=== PATIENT | male | born 1995 | race Caucasian/White ===

== ENCOUNTER 2018-09-27 17:08 | Inpatient (IN) ==
[2018-09-27] MEDS ORDERED: SODIUM CHLORIDE 0.9% 1,000 ML IV STA (18:41)
[2018-09-27] MEDS ORDERED: ONDANSETRON 4 MG/2 ML VIAL IV STA (18:41)
[2018-09-27 18:51] LABS: Basophils # 0.1 10*3/uL (0.0-0.2); Basophils % 0.5 % (0.0-0.8); Eosinophils % 0.2 % (0.00-10.9); Hematocrit 47.8 VOL% (42.0-52.0); Hemoglobin 16.2 GM/DL (14.0-18.0); Immature Granulocytes % 0.6 %; Immature Granulocytes Absolute 0.06 #; Lymphocytes # 1.5 10*3/uL (1.4-4.0); Lymphocytes % 15.6 % (21.2-54.2); Mean Corpuscular HGB Conc 33.9 GM/DL (32-36); Mean Corpuscular Hemoglobin 30 PG (27-34); Mean Corpuscular Volume 87.2 FL (87-102); Mean Platelet Volume 13.2 FL (9.6-12.0); Monocytes # 0.4 10*3/uL (0.11-0.8); Monocytes % 3.6 % (1.7-12.7); Neutrophils # 7.7 10*3/uL (1.4-7.4); Neutrophils % 79.5 % (38.7-73.9); Platelet Count 195 T/CUMM (130-400); Red Blood Count 5.48 MC/CUMM (3.8-5.5); Red Cell Distribution Width 11.9 % (9.3-17.3); White Blood Count 9.7 T/CUMM (4-12)
[2018-09-27 19:02] LABS: Albumin 4.3 G/DL (3.4-5.0); Bilirubin,Total 0.7 MG/DL (0.2-1.0); Calcium 9.3 MG/DL (8.5-10.1); Osmolality,Calculated 290.9 MOS/KG (273-304); Potassium 4.7 MMOL/L (3.5-5.1); Total Protein 7.9 G/DL (6.4-8.3)
[2018-09-27] MEDS ORDERED: INSULIN REGULAR 100 UNIT/ML IV STA ×2 (19:08→20:30)
[2018-09-27 19:41] LABS: Apearance,Urine CLEAR (Clear); Bilirubin,Urine Negative (Negative); Blood, Urine Negative (Negative); Glucose,Urine (UA) >=500 mg/dL (Negative); Ketones,Urine 20 mg/dL (Negative); Nitrite,Urine Negative (Negative); Protein,Urine Negative; Urine Color Straw (Yellow); Urine Urobilinogen < 2.0 EU/DL (0.2-1.0)
[2018-09-27 19:55] LABS: Barbiturates Screen,Urine Negative (Negative); Benzodiazepines Screen,Urine Negative (Negative); Cannabinoid Screen,Urine Negative (Negative); Opiate Screen,Urine Negative (Negative); Phencyclidine Screen,Urine Negative (Negative)
[2018-09-27] MEDS ORDERED: DEXTROSE 50% 25 GM/50 ML VIAL IV PRN (21:02)
[2018-09-27] MEDS ORDERED: GLUCAGON 1 MG VIAL IM PRN (21:02)
[2018-09-27] MEDS ORDERED: ACETAMINOPHEN 325 MG TABLET PO PRN (21:06)
[2018-09-27] MEDS ORDERED: LORazepam 2 MG/1 ML VIAL IV PRN (21:26)
[2018-09-27] MEDS: INSULIN REGULAR 100 UNIT/ML SUBCUT SCH (22:46)
[2018-09-27] MEDS: SODIUM CHLORIDE 0.9% 1,000 ML IV SCH (22:52)
[2018-09-28] MEDS: INSULIN REGULAR 100 UNIT/ML SUBCUT SCH ×7 (02:58→23:28)
[2018-09-28 04:36] LABS: Basophils # 0.1 10*3/uL (0.0-0.2); Basophils % 0.6 % (0.0-0.8); Eosinophils # 0.1 10*3/uL (0.0-0.87); Eosinophils % 0.8 % (0.00-10.9); Hematocrit 42.7 VOL% (42.0-52.0); Hemoglobin 14.3 GM/DL (14.0-18.0); Immature Granulocytes % 0.2 %; Immature Granulocytes Absolute 0.02 #; Lymphocytes # 2.3 10*3/uL (1.4-4.0); Lymphocytes % 24.5 % (21.2-54.2); Mean Corpuscular HGB Conc 33.5 GM/DL (32-36); Mean Corpuscular Hemoglobin 29 PG (27-34); Mean Platelet Volume 12.7 FL (9.6-12.0); Monocytes # 0.7 10*3/uL (0.11-0.8); Monocytes % 7.1 % (1.7-12.7); Neutrophils # 6.2 10*3/uL (1.4-7.4); Neutrophils % 66.8 % (38.7-73.9); Platelet Count 193 T/CUMM (130-400); Red Blood Count 4.91 MC/CUMM (3.8-5.5); White Blood Count 9.3 T/CUMM (4-12)
[2018-09-28 04:53] LABS: Calcium 8.7 MG/DL (8.5-10.1); Osmolality,Calculated 280.8 MOS/KG (273-304)
[2018-09-28] MEDS: SODIUM CHLORIDE 0.9% 1,000 ML IV SCH ×3 (06:36→21:57)
[2018-09-28] MEDS ORDERED: INSULIN ASPART SUBCUT SCH (07:30)
[2018-09-28] MEDS: INSULIN GLARGINE 100 UNIT/ML SUBCUT SCH (09:31)
[2018-09-28] MEDS: ONDANSETRON 4 MG/2 ML VIAL IV PRN (10:06)
[2018-09-29] MEDS: INSULIN REGULAR 100 UNIT/ML SUBCUT SCH ×6 (02:46→21:35)
[2018-09-29] MEDS: ONDANSETRON 4 MG/2 ML VIAL IV PRN ×2 (02:48→09:18)
[2018-09-29 06:01] LABS: Calcium 8.2 MG/DL (8.5-10.1); Osmolality,Calculated 285.1 MOS/KG (273-304); Potassium 3.5 MMOL/L (3.5-5.1)
[2018-09-29] MEDS: SODIUM CHLORIDE 0.9% 1,000 ML IV SCH ×2 (06:32→16:11)
[2018-09-29] MEDS: INSULIN GLARGINE 100 UNIT/ML SUBCUT SCH (09:14)
[2018-09-29] MEDS ORDERED: NICOTINE 21 MG/24 HR PATCH TRANSDERM PRN (11:13)
[2018-09-29] MEDS: PANTOPRAZOLE 40 MG TABLET PO SCH (12:23)
[2018-09-29 14:00] LABS: ABG Base Excess -5.2 MMOL/L (-2.5-2.5); ABG HCO3 20.1 MMOL/L (20-26); ABG PCO2 28.5 MM HG (35-48); ABG PH 7.406 (7.35-7.45); ABG PO2 75.6 MM HG (80-95); ABG TCO2 14.9 MMOL/L (23-27)
[2018-09-29] MEDS ORDERED: PHENYTOIN INJ 1,000 MG in SODIUM CHLORIDE 0.9% 100 ML IV ONE (14:00)
[2018-09-29 14:08] LABS: Basophils # 0.1 10*3/uL (0.0-0.2); Basophils % 0.2 % (0.0-0.8); Hematocrit 48.7 VOL% (42.0-52.0); Immature Granulocytes % 0.7 %; Immature Granulocytes Absolute 0.15 #; Lymphocytes # 4.2 10*3/uL (1.4-4.0); Lymphocytes % 19.3 % (21.2-54.2); Mean Corpuscular HGB Conc 34.3 GM/DL (32-36); Mean Corpuscular Hemoglobin 30 PG (27-34); Mean Corpuscular Volume 86.8 FL (87-102); Mean Platelet Volume 12.4 FL (9.6-12.0); Monocytes # 0.7 10*3/uL (0.11-0.8); Monocytes % 3.1 % (1.7-12.7); Neutrophils # 16.7 10*3/uL (1.4-7.4); Neutrophils % 76.7 % (38.7-73.9); Red Blood Count 5.61 MC/CUMM (3.8-5.5); Red Cell Distribution Width 12.2 % (9.3-17.3)
[2018-09-29 14:26] LABS: Alanine Aminotransferase 49 U/L (16-61); Albumin 3.9 G/DL (3.4-5.0); Alkaline Phosphatase 82 U/L (45-117); Aspartate Amino Transferase 56 U/L (0-37); Blood Urea Nitrogen 10 MG/DL (7-18); Calcium 8.6 MG/DL (8.5-10.1); Glucose 176 MG/DL (74-106); Osmolality,Calculated 281.4 MOS/KG (273-304); Potassium 2.9 MMOL/L (3.5-5.1); Sodium 140 MMOL/L (136-145); Total Protein 6.7 G/DL (6.4-8.3); Troponin I < 0.015 NG/ML (0.00-0.045)
[2018-09-29 14:29] LABS: Hemoglobin 16.7 GM/DL (14.0-18.0); White Blood Count 21.8 T/CUMM (4-12)
[2018-09-29 14:30] LABS: Platelet Count 255 T/CUMM (130-400)
[2018-09-29 14:57] LABS: Lymphocytes 18 % (20-55); Segmented Neutrophils 78 % (50-85); Total Cells Counted 100
[2018-09-29 14:59] LABS: Platelet Estimate Normal
[2018-09-30 04:32] LABS: Calcium 8.5 MG/DL (8.5-10.1); Osmolality,Calculated 284.7 MOS/KG (273-304)
[2018-09-30 05:41] LABS: Basophils % 0.3 % (0.0-0.8); Hematocrit 43.8 VOL% (42.0-52.0); Hemoglobin 14.9 GM/DL (14.0-18.0); Immature Granulocytes % 0.6 %; Immature Granulocytes Absolute 0.08 #; Lymphocytes # 2.2 10*3/uL (1.4-4.0); Lymphocytes % 15.6 % (21.2-54.2); Mean Corpuscular Hemoglobin 30 PG (27-34); Mean Corpuscular Volume 88.3 FL (87-102); Mean Platelet Volume 12.3 FL (9.6-12.0); Monocytes # 0.7 10*3/uL (0.11-0.8); Monocytes % 5.2 % (1.7-12.7); Neutrophils # 11.2 10*3/uL (1.4-7.4); Neutrophils % 78.3 % (38.7-73.9); Platelet Count 218 T/CUMM (130-400); Red Blood Count 4.96 MC/CUMM (3.8-5.5); Red Cell Distribution Width 12.4 % (9.3-17.3); White Blood Count 14.3 T/CUMM (4-12)
[2018-09-30] MEDS: SODIUM CHLORIDE 0.9% 1,000 ML IV SCH ×3 (08:27→17:55)
[2018-09-30] MEDS: INSULIN REGULAR 100 UNIT/ML SUBCUT SCH ×4 (08:30→21:01)
[2018-09-30] MEDS: PANTOPRAZOLE 40 MG TABLET PO SCH (09:57)
[2018-09-30] MEDS ORDERED: POTASSIUM CHLORIDE 20 MEQ TABLET PO ONE (12:05)
[2018-09-30] MEDS ORDERED: MAGNESIUM SULF RIDER 2 GM in PREMIX 1 EACH IV ONE (12:06)
[2018-09-30] MEDS: INSULIN GLARGINE 100 UNIT/ML SUBCUT SCH (12:22)
[2018-09-30 12:50] LABS: Barbiturates Screen,Urine Negative (Negative); Benzodiazepines Screen,Urine Negative (Negative); Cannabinoid Screen,Urine Negative (Negative); Opiate Screen,Urine Negative (Negative); Phencyclidine Screen,Urine Negative (Negative)
[2018-10-01] MEDS: SODIUM CHLORIDE 0.9% 1,000 ML IV SCH (03:24)
[2018-10-01] MEDS: ONDANSETRON 4 MG/2 ML VIAL IV PRN (07:45)
[2018-10-01] MEDS: INSULIN REGULAR 100 UNIT/ML SUBCUT SCH (08:35)
[2018-10-01] MEDS: PANTOPRAZOLE 40 MG TABLET PO SCH (08:37)
[2018-10-01] MEDS: INSULIN GLARGINE 100 UNIT/ML SUBCUT SCH (08:46)
[2018-10-01 09:06] VITALS: BP 130/82
== END 2018-10-01 11:54 | disposition home or self-care (01) | DRG 100 ==
LOC: EDBD → N.ED 17:08 → N.EDINP 17:08 → N.5E 21:13 → N.ICU 09-29 14:02 → N.4E 09-30 19:54
PROVIDERS: ADMIT Internal Medicine; ATTEND Internal Medicine

== ENCOUNTER 2021-05-23 05:56 | Inpatient (IN) ==
[2021-05-23] MEDS ORDERED: SODIUM CHLORIDE 0.9% 1,000 ML IV STA (06:38)
[2021-05-23] MEDS ORDERED: ONDANSETRON 4 MG/2 ML VIAL IV STA (06:47)
[2021-05-23 07:07] LABS: ABG HCO3 1.6 MMOL/L (20-26); ABG Oxygen Saturation 98.4 % (95-100); ABG PO2 142.1 MM HG (80-95); ABG TCO2 1.7 MMOL/L (23-27)
[2021-05-23 07:11] LABS: ABG PCO2 5.2 MM HG (35-48)
[2021-05-23] MEDS ORDERED: INSULIN REGULAR 100 UNIT/ML IV STA (07:11)
[2021-05-23 07:21] LABS: Basophils # 0.1 10*3/uL (0.0-0.2); Basophils % 0.3 % (0.0-0.8); Hematocrit 53.1 VOL% (42.0-52.0); Hemoglobin 16.9 GM/DL (14.0-18.0); Immature Granulocytes Absolute 0.15 #; Lymphocytes # 1.4 10*3/uL (1.4-4.0); Lymphocytes % 8.9 % (21.2-54.2); Mean Corpuscular HGB Conc 31.8 GM/DL (32-36); Mean Corpuscular Volume 95.8 FL (87-102); Mean Platelet Volume 10.7 FL (9.6-12.0); Monocytes % 2.2 % (1.7-12.7); Neutrophils % 87.6 % (38.7-73.9); Platelet Count 334 T/CUMM (130-400); Red Blood Count 5.54 MC/CUMM (3.8-5.5); Red Cell Distribution Width 12.9 % (9.3-17.3); White Blood Count 15.6 T/CUMM (4-12)
[2021-05-23] MEDS ORDERED: MAGNESIUM SULF RIDER 4 GM/100 ML PREMIX IV PRN (07:28)
[2021-05-23] MEDS ORDERED: SODIUM BICARB INJ 100 MEQ in STERILE WATER INJ 400 ML IV PRN (07:28)
[2021-05-23] MEDS ORDERED: DEXTROSE 50% 25 GM/50 ML VIAL IV PRN ×3 (07:28→09:31)
[2021-05-23] MEDS ORDERED: SODIUM CHLORIDE 0.9% 1,000 ML IV ONE (07:28)
[2021-05-23] MEDS ORDERED: MAGNESIUM SULF RIDER 2 GM/50 ML PREMIX IV PRN (07:28)
[2021-05-23] MEDS ORDERED: SODIUM PHOSPHATE INJ 13.3 MMOL in SODIUM CHLORIDE 0.9% 250 ML IV PRN (07:28)
[2021-05-23 07:34] LABS: Bilirubin,Urine Negative (Negative); Blood, Urine Small mg/dL (Negative); Glucose,Urine (UA) >=500 mg/dL (Negative); Ketones,Urine 80 mg/dL (Negative); Mucus,Urine Occasional /LPF (Occasional); Nitrite,Urine Negative (Negative); Protein,Urine 100 MG/DL; Urine Appearance CLEAR (Clear); Urine Color Straw (Yellow); Urine Specific Gravity 1.024 (1.001-1.035); Urine Urobilinogen < 2.0 EU/DL (0.2-1.0)
[2021-05-23 07:39] LABS: Albumin 4.7 G/DL (3.4-5.0); Bilirubin,Total 0.8 MG/DL (0.20-1.00); Calcium 9.6 MG/DL (8.5-10.1); Osmolality,Calculated 272.9 MOS/KG (273-304); Potassium 4.9 MMOL/L (3.5-5.1); Total Protein 9.1 G/DL (6.4-8.2)
[2021-05-23] MEDS: DEXTROSE 5% NACL 0.9% 1,000 ML IV SCH ×4 (08:06→21:54)
[2021-05-23] MEDS: ENOXAPARIN 40 MG/0.4 ML SYRINGE SUBCUT SCH (08:19)
[2021-05-23] MEDS: INSULIN REGULAR DRIP 100 ML IV SCH ×2 (09:09→17:39)
[2021-05-23] MEDS ORDERED: GLUCAGON 1 MG VIAL IM PRN (09:31)
[2021-05-23] MEDS: SODIUM CHLORIDE 0.9% 1,000 ML IV SCH ×2 (09:36→12:50)
[2021-05-23] MEDS: levETIRAcetam 500 MG TABLET PO SCH ×2 (09:53→20:07)
[2021-05-23] MEDS ORDERED: SODIUM CHLORIDE 0.9% 1,000 ML IV SCH (12:30)
[2021-05-23 13:26] LABS: Calcium 8.9 MG/DL (8.5-10.1); Osmolality,Calculated 274.1 MOS/KG (273-304); Potassium 4.9 MMOL/L (3.5-5.1)
[2021-05-23] MEDS ORDERED: ONDANSETRON 4 MG/2 ML VIAL ONE (13:58)
[2021-05-23 14:00] VITALS: BP 119/75
[2021-05-23] MEDS: ONDANSETRON 4 MG/2 ML VIAL IV PRN (14:09)
[2021-05-23 15:38] LABS: Calcium 8.3 MG/DL (8.5-10.1); Osmolality,Calculated 272.1 MOS/KG (273-304)
[2021-05-23] MEDS ORDERED: NICOTINE 21 MG/24 HR PATCH TRANSDERM PRN (17:24)
[2021-05-23 19:40] LABS: Calcium 8.1 MG/DL (8.5-10.1); Osmolality,Calculated 277.8 MOS/KG (273-304); Potassium 3.8 MMOL/L (3.5-5.1)
[2021-05-23] MEDS: POTASSIUM CHLORIDE RIDER 10 MEQ/100 ML PREMIX IV PRN (20:30)
[2021-05-23] MEDS ORDERED: BENZOCAINE 20% ORAL GEL 11.9 GM TUBE TOP PRN (21:12)
[2021-05-23] MEDS ORDERED: traZODone 50 MG TABLET PO PRN (23:57)
[2021-05-24 00:17] LABS: Osmolality,Calculated 269.1 MOS/KG (273-304); Potassium 3.2 MMOL/L (3.5-5.1)
[2021-05-24] MEDS ORDERED: SODIUM CHLORIDE 0.45% 1,000 ML IV SCH (00:30)
[2021-05-24] MEDS: POTASSIUM CHLORIDE RIDER 10 MEQ/100 ML PREMIX IV PRN ×7 (01:01→13:52)
[2021-05-24] MEDS: DEXTROSE 5% NACL 0.9% 1,000 ML IV SCH (03:27)
[2021-05-24 05:01] LABS: Basophils % 0.1 % (0.0-0.8); Hematocrit 40.1 VOL% (42.0-52.0); Hemoglobin 13.5 GM/DL (14.0-18.0); Immature Granulocytes % 0.5 %; Immature Granulocytes Absolute 0.06 #; Lymphocytes % 8.1 % (21.2-54.2); Mean Corpuscular HGB Conc 33.7 GM/DL (32-36); Mean Corpuscular Volume 90.3 FL (87-102); Mean Platelet Volume 10.6 FL (9.6-12.0); Neutrophils % 83.3 % (38.7-73.9); Platelet Count 223 T/CUMM (130-400); Red Blood Count 4.44 MC/CUMM (3.8-5.5); Red Cell Distribution Width 12.5 % (9.3-17.3); White Blood Count 12.7 T/CUMM (4-12)
[2021-05-24 05:22] LABS: Potassium 3.2 MMOL/L (3.5-5.1)
[2021-05-24] MEDS: ONDANSETRON 4 MG/2 ML VIAL IV PRN ×2 (05:31→09:27)
[2021-05-24] MEDS ORDERED: DEXT 5% NACL 0.45% KCL 20 MEQ 20 MEQ/1,000 ML BAG IV SCH (07:30)
[2021-05-24] MEDS: ENOXAPARIN 40 MG/0.4 ML SYRINGE SUBCUT SCH (07:51)
[2021-05-24] MEDS: levETIRAcetam 500 MG TABLET PO SCH (08:51)
[2021-05-24 08:52] LABS: Calcium 8.1 MG/DL (8.5-10.1); Osmolality,Calculated 273.8 MOS/KG (273-304); Potassium 3.3 MMOL/L (3.5-5.1)
[2021-05-24] MEDS ORDERED: POTASSIUM PHOSPHATE 30 MMOL in SODIUM CHLORIDE 0.9% 250 ML IV ONE (10:00)
[2021-05-24] MEDS ORDERED: PROMETHAZINE 25 MG/1 ML VIAL IM PRN (10:46)
[2021-05-24 12:43] LABS: Calcium 8.1 MG/DL (8.5-10.1); Osmolality,Calculated 276.5 MOS/KG (273-304); Potassium 3.1 MMOL/L (3.5-5.1)
[2021-05-24] MEDS ORDERED: POTASSIUM CHLORIDE 20 MEQ TABLET PO ONE (15:01)
== END 2021-05-24 15:28 | disposition left against medical advice (07) | DRG 638 ==
LOC: N.ED 05:56 → N.EDINP 07:28 → N.ICU 13:29
PROVIDERS: ADMIT Family Medicine; ATTEND Family Medicine